=== PATIENT | male | born 1995 | race African-American/Black ===

== ENCOUNTER 2020-10-06 17:52 | Emergency (ER) | payer OTHER ==
[~2020-10-06] VITALS: Ht 188 cm; Wt 81.8 kg
[2020-10-06] MEDS ORDERED: DOXY-96 PO (19:28)
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
[2020-10-06] MEDS ORDERED: cefTRIAXone IM 500 MG VIAL. IM ONE (19:30)
[2020-10-06 19:33] LABS: BILIRUBIN,URINE NEGATIVE (NEG); CLARITY,URINE CLEAR; COLOR,URINE YELLOW; NITRITE,URINE NEGATIVE (NEG); PROTEIN,URINE NEGATIVE (NEG-TRACE); UROBILINOGEN,URINE 0.2 mg/dL (0.2 mg/dL)
[2020-10-06 19:44] LABS: BACTERIA,URINE 0 /HPF (0-FEW)
[2020-10-06 20:03] VITALS: BP 131/72
== END 2020-10-06 20:12 | disposition home or self-care (01) ==
LOC: ER 17:52
DX: Z20.2 Contact with and (suspected) exposure to infections with a predominantly sexual mode of transmission (principal); J45.909 Unspecified asthma, uncomplicated; Z88.0 Allergy status to penicillin
CPT/HCPCS: 81001; 87491; 87591; 96372; 99283; J0696

== ENCOUNTER 2021-08-29 16:03 | Emergency (ER) | payer SELFPAY ==
[~2021-08-29] VITALS: Ht 182.9 cm; Wt 93.6 kg
[~2021-08-29 16:03] MED LIST: DOXY-96 PO
[2021-08-29] MEDS ORDERED: NAPROXEN 500 MG TABLET PO STA (16:44)
[2021-08-29] MEDS ORDERED: HYDROcodone/APAP 5/325MG 1 TAB TABLET PO ONE (16:45)
[2021-08-29] MEDS ORDERED: CYCLOBENZAPRINE 10 MG TABLET. PO ONE (16:45)
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
[2021-08-29] MEDS ORDERED: CYCL10TA19 PO (18:14)
[2021-08-29] MEDS ORDERED: NAPR-514 PO (18:14)
[2021-08-29 18:16] VITALS: BP 144/70
== END 2021-08-29 18:19 | disposition home or self-care (01) ==
LOC: ER 16:03
DX: S20.211A Contusion of right front wall of thorax, initial encounter (principal); J45.909 Unspecified asthma, uncomplicated; Z88.0 Allergy status to penicillin; Y08.89XA Assault by other specified means, initial encounter; Y93.89 Activity, other specified; Y92.89 Other specified places as the place of occurrence of the external cause; Y99.8 Other external cause status
CPT/HCPCS: 71101; 99284

== ENCOUNTER 2021-10-02 11:36 | Emergency (ER) | payer SELFPAY ==
[~2021-10-02] VITALS: Ht 182.9 cm; Wt 94.5 kg
[~2021-10-02 11:36] MED LIST changes: +CYCL10TA19 PO; +NAPR-514 PO
[2021-10-02 11:40] VITALS: BP 132/78
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
== END 2021-10-02 12:57 | disposition home or self-care (01) ==
LOC: ER 11:36
DX: K64.9 Unspecified hemorrhoids (principal); J45.909 Unspecified asthma, uncomplicated; Z88.0 Allergy status to penicillin
CPT/HCPCS: 99281